=== PATIENT | male | born 2000 | race Caucasian/White ===

== ENCOUNTER 2018-08-31 06:26 | Emergency (ER) | payer BC ==
[~2018-08-31] VITALS: Ht 182.9 cm; Wt 88.5 kg
--- OUTSIDE RECORDS SUMMARY | 2018-08-31 06:33 | XMS REPORT | Continuity of Care Document ---
Author Author [facility] Organization [facility] Address Unknown Phone Unavailable Allergies There is no data. Medications There is no data. Problems Date Dx Coded Attending Type Code Diagnosis Diagnosed By 12/05/2015 RON EAGLE APRN Ot M54.5 LOW BACK PAIN 12/21/2015 RON EAGLE APRN Ot M54.5 LOW BACK PAIN 04/14/2016 RON EAGLE APRN Ot M54.5 LOW BACK PAIN 11/18/2016 RON EAGLE APRN Ot M54.5 LOW BACK PAIN 12/09/2017 RON EAGLE APRN Ot M54.5 LOW BACK PAIN 08/31/2018 RON EAGLE APRN Ot M54.5 LOW BACK PAIN Procedures There is no data. Results There is no data. Encounters ACCT No. Visit Date/Time Discharge Status Pt. Type Provider Facility Loc./Unit Complaint [id number] 11/30/2015 09:48:00 11/30/2015 23:59:59 CLS Outpatient RON EAGLE APRN [facility] RAD LUMBAR PAIN [id number] 09/22/2014 16:54:00 09/22/2014 23:59:59 CLS Outpatient COLTHARP FELY NELSON A [facility] QUICK [id number] 08/31/2018 06:30:00 ACT Emergency NOEMI ORDONEZ, STEPHEN Cotto [facility] ER RT WRIST INJURY [id number] 09/22/2014 16:54:38 ACT Document Registration [id number] 08/03/2018 17:26:34 08/03/2018 23:59:59 CLS Outpatient Deinsse Lawson
[2018-08-31] MEDS ORDERED: KETOROLAC 30 MG/ML VIAL ONE (06:36)
[2018-08-31] MEDS ORDERED: fentaNYL INJECTION 100 MCG/2 ML AMP ONE (06:36)
--- NOTE | 2018-08-31 07:06 | ED Upper Extremity ---
General Chief Complaint: Upper Extremity Stated Complaint: RT WRIST INJURY Nursing Triage Note: AMBULATORY TO ED AFTER FALLING ON RIGHT WRIST CATCHING HIMSELF AFTER SLIPPING WHILE WORKING OUT DOING "TOES TO BAR". Nursing Sepsis Screen: No Definite Risk Source: patient Exam Limitations: no limitations History of Present Illness Date Seen by Provider: Aug 31, 2018 Time Seen by Provider: 06:30 Initial Comments Here with report of right wrist pain. He is apparently working out and was on a bar when he slipped off the bar. He tried to catch himself with his right wrist and then hit the ground. Had immediate right wrist pain which is significant. Did hit his head slightly but denies loss of consciousness. Denies other injury. Onset: just prior to arrival (approximately 10 minutes) Severity: moderate Pain/Injury Location: right wrist Method of Injury: fell, sports injury Modifying Factors: Improves With Immobilization; Worse With Movement Allergies and Home Medications Allergies Coded Allergies: No Known Drug Allergies (Unverified , 08/31/18) Home Medications Hydrocodone Bit/Acetaminophen 1 Tab Tab, 1 EACH PO Q4-6HR PRN for PAIN-MODERATE Prescribed by: STEPHEN FRANKLIN on 08/31/18 0883 Patient Home Medication List Home Medication List Reviewed: Yes Review of Systems Constitutional: see HPI; No chills, No fever EENTM: no symptoms reported Respiratory: no symptoms reported Cardiovascular: no symptoms reported Gastrointestinal: no symptoms reported Musculoskeletal: joint pain, muscle pain Skin: no symptoms reported Psychiatric/Neurological: No Symptoms Reported Past Knxyats-Cthukq-Rsphlp Hx Past Med/Social Hx: Reviewed Nursing Past Med/Soc Hx Patient Social History Alcohol Use: Denies Use Recreational Drug Use: No Smoking Status: Never a Smoker Recent Foreign Travel: No Contact w/Someone Who Travel: No Recent Infectious Disease Expo: No Recent Hopitalizations: No Seasonal Allergies Seasonal Allergies: No Past Medical History Surgeries: No Respiratory: No Cardiac: No Neurological: No Genitourinary: No Gastrointestinal: No Musculoskeletal: No Endocrine: No HEENT: No Cancer: No Psychosocial: No Integumentary: No Blood Disorders: No Family Medical History Reviewed Nursing Family Hx Physical Exam Vital Signs Vital Signs - First Documented 08/31/18 08/31/18 06:30 08:38 Temp 97.9 Pulse 52 Resp 20 B/P (MAP) 137/72 (93) Pulse Ox 100 O2 Delivery Room Air Capillary Refill : Less Than 3 Seconds Height, Weight, BMI Height: 6'0" Weight: 195lbs. oz. 88.050617po; BMI Method:Stated General Appearance: WD/WN, mild distress HEENT: PERRL/EOMI, TMs normal, pharynx normal Neck: full range of motion, supple Cardiovascular: regular rate, rhythm, no murmur Respiratory: lungs clear, normal breath sounds Elbow/Forearm: Right, bone tenderness, deformity (distal forearm), limited ROM , pain, soft tissue tenderness, swelling Wrist: Yes deformity, Yes limited ROM (right wrist) Hand: Right, limited ROM (pain limited due to distal forearm injury) Neurologic/Tendon: normal sensation, normal motor functions Neurologic/Psychiatric: alert, oriented x 3 Skin: normal color, warm/dry Procedures/Interventions Splinting and Joint Reduction : Pre-Proc Neuro Vasc Exam: normal Post-Proc Neuro Vasc Exam: normal Progress Fiberglass sugar tong splint placed. Sling placed afterwards. Neurovascular intact and pain reduce. Tolerated well with no complication. Hand-Made Type: fiberglass Splint Application: Long Arm (sugar tong) Progress/Results/Core Measures Results/Orders My Orders Orders - STEPHEN FRANKLIN MD Fentanyl Injection (Sublimaze Injection (08/31/18 06:36) Ketorolac Injection (Toradol Injection) (08/31/18 06:36) Wrist, Right, 3 Views Or More (08/31/18 ) Fentanyl Injection (Sublimaze Injection (08/31/18 07:34) Medications Given in ED Current Medications Medications Dose Ordered Sig/Sania Route Start Time Stop Time Status Last Admin Dose Admin Fentanyl Citrate 100 mcg STK-MED ONCE .ROUTE 08/31/18 06:36 08/31/18 06:39 DC 08/31/18 06:42 100 MCG Ketorolac Tromethamine 30 mg STK-MED ONCE .ROUTE 08/31/18 06:36 08/31/18 06:39 DC 08/31/18 06:41 30 MG Vital Signs/I&O 08/31/18 08/31/18 06:30 08:38 Temp 97.9 Pulse 52 57 Resp 20 18 B/P (MAP) 137/72 (93) 137/72 (93) Pulse Ox 100 O2 Delivery Room Air Blood Pressure Mean: 93 Progress Progress Note : Progress Note Seen and evaluated. IV initiated. Toradol 30 mg IV and fentanyl 50 g IV. X-ray right wrist ordered. Monitor patient. Repeat fentanyl 50 g IV. X-ray does show complicated fracture. I did discuss the case with Jourdan De La Cruz with Dr. Stokes. They will see him at 2:00 today in the office. We will place sugar tong and sling. 0830: Tolerating better. We will write prescription for pain medicine. He will see Dr. Stokes today at 2pm. Copy of chart to Dr. Stokes. Discharged home with return precautions. Patient verbalize understanding instructions and agreement with plan. Diagnostic Imaging Diagonstic Imaging: Xray Plain Films/CT/US/NM/MRI: other (right wrist) Comments [facility], [place] NAME: ALEXIA JEAN-BAPTISTE [facility] REC#: [id number] PT STATUS: REG ER : 2000 PHYSICIAN: STEPHEN FRANKLIN MD ADMIT DATE: 08/31/18/ER Draft Date of Exam:08/31/18 WRIST, RIGHT, 3 VIEWS OR MORE INDICATION: Fall. TECHNIQUE: Three views of the right wrist. CORRELATION STUDY: None. FINDINGS: There is a multipart comminuted fracture involving the distal right radius. The fracture line is predominantly transversely oriented. There are longitudinally oriented fracture lines as well as fracture lines extending to the articular surface. There is outward displacement of the main fracture fragments. Slight dorsal angulation is also present. Additionally, there is a displaced ulnar styloid process fracture. The carpal bones appear to be intact. Soft tissue swelling is present. IMPRESSION: Comminuted mildly angulated intra-articular distal right radius fracture. Mildly displaced ulnar styloid process fracture. Associated soft tissue swelling. Dictated on workstation # [id number] Dict: 08/31/18826 Trans: 08/31/18 0844 [id number] Interpreted by: JAMARI BARCLAY DO Electronically signed by: Reviewed: Reviewed by Me Departure Impression Primary Impression: Fracture of radius and ulna Qualified Codes: S52.91XA - Unspecified fracture of right forearm, initial encounter for closed fracture; S52.201A - Unspecified fracture of shaft of right ulna, initial encounter for closed fracture Disposition: 01 HOME, SELF-CARE Condition: Stable Departure-Patient Inst. Decision time for Depature: 08:32 Referrals: JANINE DE LUNA DO (PCP/Family) Primary Care Physician FLORENCE STOKES MD Patient Instructions: Wrist Fracture (DC) Add. Discharge Instructions: All discharge instructions reviewed with patient and/or family. Voiced understanding. Take medications as directed. Follow-up with Dr. Stokes's office at 2 PM today. Call his office this morning to get this set up. You can let them know that the case was discussed with Taye De La Cruz and they will see you at 2 PM. Keep splint in place. Continue to use sling. Return for worse pain, swelling, numbness, weakness or other concerns as needed. You may use ice packs over the area of concern 20 minutes per hour as needed. Scripts Hydrocodone Bit/Acetaminophen (Hydrocodone/Acetaminophen 5/325mg Tablet) 1 Tab Tab 1 EACH PO Q4-6HR PRN for PAIN-MODERATE MDD 10, #8 TAB Prov: STEPHEN FRANKLIN MD 08/31/18 Copy Copies To 1: FLORENCE STOKES MD, TIMOTHY D MD Aug 31, 2018 07:06
[2018-08-31] MEDS ORDERED: fentaNYL INJECTION 100 MCG/2 ML AMP IVP STA (07:34)
--- NOTE | 2018-08-31 07:34 | NUR ---
TO ROOM [facility] CON'T TO HAVE PAIN
[2018-08-31] MEDS ORDERED: ACHD5005 PO (08:35)
[2018-08-31 08:38] VITALS: BP 137/72
--- NOTE | 2018-08-31 08:45 | Diagnostic Imaging Report ---
INDICATION: Fall. TECHNIQUE: Three views of the right wrist. CORRELATION STUDY: None. FINDINGS: There is a multipart comminuted fracture involving the distal right radius. The fracture line is predominantly transversely oriented. There are longitudinally oriented fracture lines as well as fracture lines extending to the articular surface. There is outward displacement of the main fracture fragments. Slight dorsal angulation is also present. Additionally, there is a displaced ulnar styloid process fracture. The carpal bones appear to be intact. Soft tissue swelling is present. IMPRESSION: Comminuted mildly angulated intra-articular distal right radius fracture. Mildly displaced ulnar styloid process fracture. Associated soft tissue swelling. Dictated by: Dictated on workstation # [id number]
== END 2018-08-31 08:38 | disposition home or self-care (01) ==
LOC: EDUNIT# 06:26 → ER 06:30
DX: S52.571A Other intraarticular fracture of lower end of right radius, initial encounter for closed fracture (principal); S52.611A Displaced fracture of right ulna styloid process, initial encounter for closed fracture; W01.198A Fall on same level from slipping, tripping and stumbling with subsequent striking against other object, initial encounter; Y92.511 Restaurant or cafe as the place of occurrence of the external cause
CPT/HCPCS: 29105; 73110; 96374; 96375; 96376

== ENCOUNTER → 2021-01-10 | Outpatient (CLI) | payer BC ==
[~2021-01-10] MED LIST: ACHD5005 PO
--- NOTE | 2021-01-10 13:55 | Diagnostic Imaging Report ---
HISTORY: Palpable mass at the anterior left tibia for several years. Bony abnormality. COMPARISON: None. TECHNIQUE: Two views of the left tibia/fibula. FINDINGS: There is a focal area of smooth cortical thickening at the anteromedial aspect of the mid tibia, which measures approximately 8 cm in length craniocaudal. There is no associated periosteal reaction. No other aggressive features are seen. 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 No focal lytic or blastic lesions are identified. There is no acute fracture. Alignment appears normal. IMPRESSION: 1. Focal area of cortical thickening at the anteromedial left mid tibia. No aggressive features are present. Dictated by: Dictated on workstation # [id number]
== END ==
LOC: RAD 12:08
PROVIDERS: ATTEND Family Medicine
DX: R22.42 Localized swelling, mass and lump, left lower limb (principal); M89.9 Disorder of bone, unspecified
CPT/HCPCS: 73590